=== PATIENT | male | born 1985 | race Caucasian/White ===

== ENCOUNTER 2021-08-06 09:04 | Emergency (ER) | payer MEDICAID, SELFPAY ==
[~2021-08-06] VITALS: Ht 15.2 cm; Wt 90.4 kg
[~2021-08-06 09:04] MED LIST: MULT-2253 PO; QUET50TA PO
[2021-08-06 09:16] VITALS: BP 149/100
[2021-08-06] MEDS ORDERED: LORazepam 1 MG TAB PO ONE (09:35)
--- NOTE | 2021-08-06 09:40 | NUR ---
36 Y/O MALE BIB SELF WITH C/O OF UNABLE TO SLEEP LAST NIGHT AND S/P 2 PINTS OF HARD LIQUOR. DENIES CP/N/V/D. LAST BM 08/06/2021, NO RED OR BLACK COLOR NOTED. PT IS AOX4, ABLE TO MAKE ALL NEEDS KNOWN. AMBULATES STEADY WITHOUT ASSIST. HAND TREMORS NOTED, PER PT THEY ARE FROM WITHDRAWAL. PMHX: ALCOHOLISM, DEPRESSION HOME MEDS: DENIES ALLERGIES: DENIES
[2021-08-06] MEDS ORDERED: LIB25 PO (09:56)
[2021-08-06 10:18] VITALS: BP 141/79
--- NOTE | 2021-08-06 10:18 | NUR ---
Patient discharged with v/s stable. Written and verbal after care instructions given and explained with teachback. Patient alert, oriented and verbalized understanding of instructions. Ambulatory with steady gait. Friend called to picking belt operator from ER as pt understands he cannot drive. All questions addressed prior to discharge. ID band removed. Patient advised to follow up with PMD. Rx of Librium given. Patient educated on indication of medication including possible reaction and side effects. Opportunity to ask questions provided and answered.
== END 2021-08-06 10:19 | disposition home or self-care (01) ==
LOC: MED 09:04
DX: F10.129 Alcohol abuse with intoxication, unspecified (principal); F41.9 Anxiety disorder, unspecified; Y90.9 Presence of alcohol in blood, level not specified
CPT/HCPCS: 81002; 99283